=== PATIENT | female | born 1970 | race Caucasian/White ===

== ENCOUNTER → 2017-03-19 | Outpatient (CLI) | payer BC ==
[~2017-03-19] MED LIST: ATARAX50 MG PO; PREDNISONE20 MG; PRINIVIL40 MG PO; PROZAC 20MG20 MG PO
[2017-03-19 10:28] LABS: BASO % 0.2 % (0.0-2.0); EOS % 0.2 % (0-4.0); GRAN # 3.5 (1.4-6.5); GRAN % 78.1 % (42.2-75.2); HEMATOCRIT 39.5 % (37.0-47.0); HEMOGLOBIN 13.3 g/dl (12.5-16.0); LYMPH # 0.8 (1.2-3.4); MEAN CELL VOLUME 96 fl (80.0-100.0); MEAN CORPUSCULAR HEMOGLOBIN 32 pg (27.0-31.0); MEAN CORPUSCULAR HGB CONC 34 g/dl (33.0-37.0); MEAN PLATELET VOLUME 10.1 fl (7.4-10.4); MONO # 0.1 (0.1-0.6); MONO % 3.1 % (1.7-9.3); PLATELET COUNT 101 K/mm3 (130-400); REDCELL DISTRIBUTION WIDTH-CV 13.2 % (11.5-14.5); WHITE BLOOD COUNT 4.5 K/mm3 (4.8-10.8)
[2017-03-19 10:50] LABS: ERYTHROCYTE SEDIMENTATION RATE 50 mm/hr (0-20)
[2017-03-19 11:01] LABS: ADJUSTED CALCIUM 9.2 mg/dL (8.4-10.2); ALBUMIN 4.5 gm/dL (3.5-5.0); BILIRUBIN,TOTAL 1.2 mg/dL (0.0-1.0); C-REACTIVE PROTEIN 2.1 mg/dL (0.0-0.9); CALCIUM 9.6 mg/dL (8.4-10.2); CREATININE, serum 0.48 mg/dL (0.52-1.25); POTASSIUM 3.8 mmol/L (3.4-5.0); TOTAL PROTEIN 9.3 gm/dL (6.4-8.2)
== END ==
LOC: COL.LAB 10:03
PROVIDERS: Physician Assistant
DX: L95.9 Vasculitis limited to the skin, unspecified (principal)

== ENCOUNTER → 2017-03-20 | Outpatient (CLI) | payer BC | LOC: COL.LAB 09:07 | DX: L95.9 Vasculitis limited to the skin, unspecified (principal) ==

== ENCOUNTER 2019-03-05 03:39 | Inpatient (IN) | payer OTHER ==
[~2019-03-05] VITALS: Ht 167.6 cm; Wt 99.2 kg
[2019-03-05] VITALS (658 sets, daily range): BP systolic 91–127; BP diastolic 39–62; PULSE 96–103; TEMP 98–99; O2SAT 88–97
[~2019-03-05 03:39] MED LIST changes: +ATARAX 25MG25 MG/TAB PO; -ATARAX50 MG PO; +PRINIVIL20 MG PO; -PRINIVIL40 MG PO; -PROZAC 20MG20 MG PO; +PROZAC40 MG PO
[2019-03-05 04:15] LABS: MEAN CELL VOLUME 96 fl (80.0-100.0); MEAN CORPUSCULAR HGB CONC 36 g/dl (33.0-37.0); PLATELET COUNT 98 K/mm3 (130-400); REDCELL DISTRIBUTION WIDTH-CV 15.4 % (11.5-14.5)
[2019-03-05 04:21] LABS: INR 3.2 (0.8-3.0); PROTHROMBIN TIME 36.6 SECONDS (9.7-12.8)
[2019-03-05 04:22] LABS: HEMATOCRIT 25.9 % (37.0-47.0); HEMOGLOBIN 9.4 g/dl (12.5-16.0); MEAN CORPUSCULAR HEMOGLOBIN 35 pg (27.0-31.0)
[2019-03-05 04:27] LABS: ALANINE AMINOTRANSFERASE 37 U/L (9-52); ALBUMIN 2.5 gm/dL (3.5-5.0); ALKALINE PHOSPHATASE 129 U/L (50-136); ANION GAP 13 mmol/L (7-16); AST,SGOT 139 U/L (15-37); BILIRUBIN,TOTAL 8.3 mg/dL (0.0-1.0); BLOOD UREA NITROGEN 17 mg/dL (7-17); CALCIUM 7.4 mg/dL (8.4-10.2); CARBON DIOXIDE 27 mmol/L (22-30); CREATININE, serum 1.44 (0.52-1.25); GLUCOSE 98 mg/dL (74-106); LIPASE 79 U/L (23-300); TOTAL PROTEIN 8.2 gm/dL (6.4-8.2)
[2019-03-05 04:29] LABS: SODIUM 115 mmol/L (137-145)
[2019-03-05 04:30] LABS: CHLORIDE 75 mmol/L (98-107); LACTIC ACID 3.5 mmol/L (0.4-2.0); POTASSIUM 2.7 mmol/L (3.4-5.0)
[2019-03-05] MEDS ORDERED: LASIX 20MG TABL20 MG PO (04:43)
[2019-03-05] MEDS ORDERED: K-TAB10 PO (04:43)
[2019-03-05 04:54] LABS: TROPONIN-I < 0.012 ng/mL (0.000-0.035)
[2019-03-05 05:27] LABS: BAND 34 % (0-10); EOSINOPHIL 1 % (0-4); LYMPHOCYTE 15 % (20.0-51.0); METAMYELOCYTE 1 % (0-0); NEUTROPHILS 40 % (42.0-75.2); PLATELET ESTIMATE DECREASED (NORMAL)
[2019-03-05 12:00] LABS: COLLECTION METHOD CLEAN CATCH
[2019-03-05 12:19] LABS: URINE PROTEIN:CREAT RATIO 0.41 (0.00-0.14)
[2019-03-05 12:59] LABS: MUCOUS Present /lpf; PH 5 (5-8); URINE APPEARANCE Cloudy; URINE BACTERIA Rare /hpf; URINE BILIRUBIN Positive (NEGATIVE); URINE BLOOD 2+ (NEGATIVE); URINE COLOR Amber; URINE GLUCOSE Negative (NEGATIVE); URINE KETONE Negative (NEGATIVE); URINE LEUKOCYTE ESTERASE Negative (NEGATIVE); URINE NITRATE Negative (NEGATIVE); URINE PROTEIN(semi-quant) 2+ (NEGATIVE); URINE UROBILINOGEN >=4.0 mg/dL (NEGATIVE)
[2019-03-05 13:53] LABS: OSMOLALITY-URINE random 278 Osm/kg (50-1200)
[2019-03-05 14:08] LABS: INR 3.1 (0.8-3.0); PROTHROMBIN TIME 35.4 SECONDS (9.7-12.8)
[2019-03-05 14:13] LABS: CALCIUM 6.9 mg/dL (8.4-10.2); CREATININE, serum 1.47 (0.52-1.25); POTASSIUM 3.4 mmol/L (3.4-5.0)
[2019-03-06] VITALS (1213 sets, daily range): BP systolic 89–133; BP diastolic 40–62; PULSE 90–104; TEMP 97.5–99.1; O2SAT 80–96
[2019-03-06 06:48] LABS: HEMATOCRIT 25.5 % (37.0-47.0); HEMOGLOBIN 8.8 g/dl (12.5-16.0)
[2019-03-06 06:57] LABS: CALCIUM 6.6 mg/dL (8.4-10.2); CREATININE, serum 1.78 (0.52-1.25)
[2019-03-06 07:05] LABS: POTASSIUM 2.8 mmol/L (3.4-5.0)
[2019-03-06 07:08] LABS: MEAN CELL VOLUME 99 fl (80.0-100.0); MEAN CORPUSCULAR HGB CONC 35 g/dl (33.0-37.0); MEAN PLATELET VOLUME 9.6 fl (7.4-10.4); PLATELET COUNT 96 K/mm3 (130-400); REDCELL DISTRIBUTION WIDTH-CV 15.7 % (11.5-14.5)
[2019-03-06 07:10] LABS: HEMATOCRIT 25.6 % (37.0-47.0); HEMOGLOBIN 8.9 g/dl (12.5-16.0); INR 2.6 (0.8-3.0); MEAN CORPUSCULAR HEMOGLOBIN 34 pg (27.0-31.0); PROTHROMBIN TIME 29.4 SECONDS (9.7-12.8)
[2019-03-06 07:30] LABS: BAND 1 % (0-10); BASOPHIL 1 % (0-2); EOSINOPHIL 2 % (0-4); LYMPHOCYTE 3 % (20.0-51.0); NEUTROPHILS 88 % (42.0-75.2); PLATELET ESTIMATE DECREASED (NORMAL)
[2019-03-06 20:46] LABS: CALCIUM 6.7 mg/dL (8.4-10.2); CREATININE, serum 1.62 (0.52-1.25); POTASSIUM 3.7 mmol/L (3.4-5.0)
[2019-03-07] VITALS (1314 sets, daily range): BP systolic 89–129; BP diastolic 42–69; PULSE 93–103; TEMP 97.7–98.4; O2SAT 82–99
[2019-03-07 02:29] LABS: ARTERIAL BLD GAS TCO2 CT 28.1; ARTERIAL BLOOD GAS BASE EXCESS 1.1 (-2-2); ARTERIAL BLOOD GAS HCO3 26.7 meq/L (22-26); ARTERIAL BLOOD GAS PCO2 46.8 mmHg (35-45); ARTERIAL BLOOD GAS PO2 88.9 mmHg (80-100); ARTERIAL BLOOD GAS pH 7.37 (7.35-7.45)
[2019-03-07 05:18] LABS: HEMOGLOBIN 8.1 g/dl (12.5-16.0); MEAN CELL VOLUME 101 fl (80.0-100.0); MEAN CORPUSCULAR HEMOGLOBIN 34 pg (27.0-31.0); MEAN CORPUSCULAR HGB CONC 34 g/dl (33.0-37.0); MEAN PLATELET VOLUME 9.8 fl (7.4-10.4); PLATELET COUNT 96 K/mm3 (130-400); RED BLOOD COUNT 2.39 M/mm3 (4.10-5.30); REDCELL DISTRIBUTION WIDTH-CV 15.9 % (11.5-14.5)
[2019-03-07 05:19] LABS: HEMATOCRIT 24.1 % (37.0-47.0)
[2019-03-07 05:23] LABS: INR 2.6 (0.8-3.0); PROTHROMBIN TIME 29.5 SECONDS (9.7-12.8)
[2019-03-07 05:31] LABS: ALBUMIN 2.1 gm/dL (3.5-5.0); BILIRUBIN,TOTAL 8.9 mg/dL (0.0-1.0); CALCIUM 6.7 mg/dL (8.4-10.2); CREATININE, serum 1.52 (0.52-1.25); MAGNESIUM 1.3 mg/dL (1.6-2.3); POTASSIUM 3.3 mmol/L (3.4-5.0); TOTAL PROTEIN 6.9 gm/dL (6.4-8.2)
[2019-03-07 05:42] LABS: BAND 46 % (0-10); EOSINOPHIL 1 % (0-4); LYMPHOCYTE 2 % (20.0-51.0); METAMYELOCYTE 3 % (0-0); NEUTROPHILS 31 % (42.0-75.2); PLATELET ESTIMATE DECREASED (NORMAL)
[2019-03-07 05:44] LABS: ANISOCYTOSIS 1+; SCHISTOCYTES 1+
[2019-03-07 05:45] LABS: TEAR DROP CELLS 1+
[2019-03-07 07:29] LABS: ARTERIAL BLD GAS O2 SATURATION 96.5 % (92-100); ARTERIAL BLD GAS TCO2 CT 23.4; ARTERIAL BLOOD GAS BASE EXCESS -2.8 (-2-2); ARTERIAL BLOOD GAS HCO3 22.2 meq/L (22-26); ARTERIAL BLOOD GAS PCO2 39.4 mmHg (35-45); ARTERIAL BLOOD GAS PO2 90.7 mmHg (80-100); ARTERIAL BLOOD GAS pH 7.37 (7.35-7.45)
[2019-03-07 14:12] LABS: ALBUMIN 2.2 gm/dL (3.5-5.0); CALCIUM 7.1 mg/dL (8.4-10.2); CREATININE, serum 1.46 (0.52-1.25)
[2019-03-07 14:25] LABS: PHOSPHOROUS 3.2 mg/dL (2.5-4.5)
[2019-03-08] VITALS (1377 sets, daily range): BP systolic 109–131; BP diastolic 55–74; PULSE 93–108; TEMP 97.2–99; O2SAT 86–97
[2019-03-08 05:22] LABS: MEAN CELL VOLUME 102 fl (80.0-100.0); MEAN CORPUSCULAR HGB CONC 34 g/dl (33.0-37.0); PLATELET COUNT 63 K/mm3 (130-400); RED BLOOD COUNT 2.39 M/mm3 (4.10-5.30); REDCELL DISTRIBUTION WIDTH-CV 16.1 % (11.5-14.5)
[2019-03-08 05:24] LABS: INR 2.2 (0.8-3.0)
[2019-03-08 05:28] LABS: HEMATOCRIT 24.4 % (37.0-47.0); HEMOGLOBIN 8.2 g/dl (12.5-16.0); MEAN CORPUSCULAR HEMOGLOBIN 34 pg (27.0-31.0)
[2019-03-08 05:31] LABS: ALBUMIN 2.2 gm/dL (3.5-5.0); BILIRUBIN,TOTAL 10.4 mg/dL (0.0-1.0); CALCIUM 7.5 mg/dL (8.4-10.2); CREATININE, serum 1.3 (0.52-1.25); MAGNESIUM 2.1 mg/dL (1.6-2.3); POTASSIUM 3.8 mmol/L (3.4-5.0); TOTAL PROTEIN 7.3 gm/dL (6.4-8.2)
[2019-03-08 05:50] LABS: BAND 32 % (0-10); LYMPHOCYTE 11 % (20.0-51.0); METAMYELOCYTE 3 % (0-0); MYELOCYTE 1 % (0-0); NEUTROPHILS 45 % (42.0-75.2); PLATELET ESTIMATE DECREASED (NORMAL)
[2019-03-08 05:51] LABS: ANISOCYTOSIS 1+
[2019-03-08 12:01] LABS: CHOLESTEROL 76 mg/dL (120-200); PHOSPHOROUS 3.3 mg/dL (2.5-4.5); TRIGLYCERIDE 65 mg/dL
[2019-03-08 12:10] LABS: PRE ALBUMIN < 3.0 mg/dL (17.6-36.0)
[2019-03-09] VITALS (849 sets, daily range): BP systolic 128–146; BP diastolic 65–78; PULSE 104–110; TEMP 98.4–99.2; O2SAT 79–99
[2019-03-09 05:07] LABS: MEAN CELL VOLUME 102 fl (80.0-100.0); MEAN CORPUSCULAR HGB CONC 33 g/dl (33.0-37.0); PLATELET COUNT 64 K/mm3 (130-400); REDCELL DISTRIBUTION WIDTH-CV 16.1 % (11.5-14.5)
[2019-03-09 05:08] LABS: HEMATOCRIT 25.6 % (37.0-47.0); HEMOGLOBIN 8.4 g/dl (12.5-16.0); MEAN CORPUSCULAR HEMOGLOBIN 34 pg (27.0-31.0)
[2019-03-09 05:18] LABS: INR 2.1 (0.8-3.0)
[2019-03-09 05:19] LABS: ALBUMIN 2.2 gm/dL (3.5-5.0); BILIRUBIN,TOTAL 10.5 mg/dL (0.0-1.0); CALCIUM 8.7 mg/dL (8.4-10.2); CREATININE, serum 0.75 (0.52-1.25); MAGNESIUM 2.3 mg/dL (1.6-2.3); PHOSPHOROUS 3.1 mg/dL (2.5-4.5); POTASSIUM 3.6 mmol/L (3.4-5.0); TOTAL PROTEIN 7.4 gm/dL (6.4-8.2)
[2019-03-09 06:14] LABS: BAND 35 % (0-10); LYMPHOCYTE 5 % (20.0-51.0); METAMYELOCYTE 2 % (0-0); NEUTROPHILS 29 % (42.0-75.2)
[2019-03-09 06:15] LABS: HYPOCHROMIA 1+
[2019-03-09 06:16] LABS: ANISOCYTOSIS 1+
[2019-03-09 06:17] LABS: TARGET CELLS 2+
[2019-03-09 06:18] LABS: OVALOCYTES 1+; TEAR DROP CELLS 1+
[2019-03-10] VITALS (123 sets, daily range): O2SAT 86–95
[2019-03-10 01:29] LABS: HEMATOCRIT 29.3 % (37.0-47.0); HEMOGLOBIN 9.8 g/dl (12.5-16.0); MEAN CELL VOLUME 101 fl (80.0-100.0); MEAN CORPUSCULAR HEMOGLOBIN 34 pg (27.0-31.0); MEAN CORPUSCULAR HGB CONC 33 g/dl (33.0-37.0); MEAN PLATELET VOLUME 9.3 fl (7.4-10.4); PLATELET COUNT 86 K/mm3 (130-400); REDCELL DISTRIBUTION WIDTH-CV 16.4 % (11.5-14.5)
[2019-03-10 01:53] LABS: ALBUMIN 1.9 gm/dL (3.5-5.0); BILIRUBIN,TOTAL 9.2 mg/dL (0.0-1.0); CALCIUM 9.7 mg/dL (8.4-10.2); CREATININE, serum 0.7 (0.52-1.25); POTASSIUM 4.6 mmol/L (3.4-5.0); TOTAL PROTEIN 6.7 gm/dL (6.4-8.2)
[2019-03-10 01:57] LABS: ANISOCYTOSIS 1+; BAND 32 % (0-10); EOSINOPHIL 2 % (0-4); LYMPHOCYTE 8 % (20.0-51.0); METAMYELOCYTE 6 % (0-0); NEUTROPHILS 28 % (42.0-75.2); NUCLEATED RED BLOOD CELL 2 (0-6); PLATELET ESTIMATE DECREASED (NORMAL); TARGET CELLS 2+
[2019-03-10 01:58] LABS: OVALOCYTES 1+
[2019-03-13 08:23] LABS: PATHOLOGY DIFF REVIEW OK
== END 2019-03-11 00:27 | disposition expired | DRG 871 ==
LOC: COL.ER 03:39 → ICU 05:21
PROVIDERS: Emergency Medicine; Internal Medicine; Internal Medicine Nephrology; Internal Medicine Pulmonary Disease; Nurse Practitioner Family; Physician Assistant; ADMIT Internal Medicine
PROC: B548ZZA Ultrasonography of Superior Vena Cava, Guidance (ICD-10-PCS; principal; 2019-03-06)
PROC: 02HV33Z Insertion of Infusion Device into Superior Vena Cava, Percutaneous Approach (ICD-10-PCS; principal; 2019-03-06)
PROC: 5A09357 Assistance with Respiratory Ventilation, Less than 24 Consecutive Hours, Continuous Positive Airway Pressure (ICD-10-PCS; 2019-03-07)
DX: A41.59 Other Gram-negative sepsis (principal); J18.9 Pneumonia, unspecified organism; K63.1 Perforation of intestine (nontraumatic); R65.21 Severe sepsis with septic shock; K72.00 Acute and subacute hepatic failure without coma; K65.2 Spontaneous bacterial peritonitis; E87.1 Hypo-osmolality and hyponatremia; N17.9 Acute kidney failure, unspecified; E44.0 Moderate protein-calorie malnutrition; E87.2 Acidosis; D68.9 Coagulation defect, unspecified; K76.6 Portal hypertension; S00.03XA Contusion of scalp, initial encounter; W19.XXXA Unspecified fall, initial encounter; Y93.9 Activity, unspecified; I95.9 Hypotension, unspecified; Y92.9 Unspecified place or not applicable; Y99.9 Unspecified external cause status; E87.6 Hypokalemia; K81.9 Cholecystitis, unspecified; D69.6 Thrombocytopenia, unspecified; K70.31 Alcoholic cirrhosis of liver with ascites; R16.1 Splenomegaly, not elsewhere classified; I77.6 Arteritis, unspecified; Z91.81 History of falling; D63.8 Anemia in other chronic diseases classified elsewhere; F41.9 Anxiety disorder, unspecified; R07.9 Chest pain, unspecified; Z66 Do not resuscitate; R09.02 Hypoxemia; R60.1 Generalized edema; Z51.5 Encounter for palliative care; Z68.34 Body mass index [BMI] 34.0-34.9, adult
CPT/HCPCS: 99223-AI; 99233-AI; 99239; A4216; A4217; A4314; C1751; C1892; C9113; J0456; J0610; J1170; J1630; J1940; J2060; J2185; J2270; J2405; J2543; J3370; J3430; J3475; J3480; J7030; J7050; J7060; J7131; Q9967